=== PATIENT | female | born 1960 | race Caucasian/White ===

== ENCOUNTER 2019-04-20 17:47 | Inpatient (IN) | payer MEDICAID ==
[~2019-04-20] VITALS: Ht 165.1 cm; Wt 69.9 kg
[2019-04-20 17:49] VITALS: BP_SYST 129
--- NOTE | 2019-04-20 17:49 | NUR ---
Patient to ER bed 05 to gown for evaluation. Side rails up. Report given to SANDEEP Espana
--- NOTE | 2019-04-20 17:52 | NUR ---
Pt brought by self , A&Ox4, pt presents to ER with SOB, states Hx of COPD and smoker, skin pink and warm , cap efill <3, afebrile , follows commands, will cont to monitor
--- NOTE | 2019-04-20 17:55 | NUR ---
Kerrie Hernandez at bedside examining patient
[2019-04-20] MEDS ORDERED: methylPREDNISolone SOD SUCC/PF 62.5 MG/ML VIAL IM ONE (18:00)
[2019-04-20] MEDS ORDERED: IPRATROPIUM/ALBUTEROL SULFATE 3 ML AMPUL.NEB (DUONEB) INH ONE ×3 (18:00→19:30)
[2019-04-20] MEDS ORDERED: NACL 0.9% 1,000 ML IV ONE (18:00)
--- NOTE | 2019-04-20 18:09 | NUR ---
Report given to Jovi HOPKINS
[2019-04-20] MEDS ORDERED: methylPREDNISolone SOD SUCC/PF 62.5 MG/ML VIAL ONE (18:12)
[2019-04-20] MEDS ORDERED: MAGNESIUM SULFATE 1 GM/2 ML VIAL IVP ONE (18:15)
[2019-04-20 18:22] LABS: BASOPHILS # (AUTO) 0.1 K/uL (0.0-0.2); BASOPHILS % (AUTO) 0.6 % (0.0-2.0); EOSINOPHILS % (AUTO) 9.9 % (0.0-4.0); HEMATOCRIT 41.4 % (36-48); HEMOGLOBIN 14.4 g/dL (12.0-16.0); LYMPHOCYTES # (AUTO) 2.9 K/uL (1.0-5.5); LYMPHOCYTES % (AUTO) 28.9 % (20.5-51.5); MEAN CORPUSCULAR HEMOGLOBIN 34 pg (27-31); MEAN CORPUSCULAR HGB CONC 35 % (32-36); MEAN CORPUSCULAR VOLUME 97 fL (79.0-98.0); MONOCYTES # (AUTO) 1.1 K/uL (0.0-1.0); MONOCYTES % (AUTO) 11.1 % (1.7-9.3); NEUTROPHILS # (AUTO) 4.9 K/uL (1.8-7.7); NEUTROPHILS % (AUTO) 49.5 % (40.0-70.0); PLATELET COUNT (AUTO) 602 K/uL (130-430); RED BLOOD CELL COUNT(AUTO) 4.28 MIL/uL (4.2-6.2); RED CELL DISTRIBUTION WIDTH 13.4 % (9.0-15.0); WHITE BLOOD COUNT (AUTO) 9.9 K/uL (4.8-10.8)
[2019-04-20 18:55] LABS: CALCIUM 8.8 mg/dL (8.4-11.0); CREATININE 0.95 mg/dL (0.55-1.30); POTASSIUM 3.9 mmol/L (3.5-5.1)
[2019-04-20 19:08] LABS: ALBUMIN 4.4 g/dL (3.4-4.8); TOTAL BILIRUBIN 0.3 mg/dL (0.0-1.0)
[2019-04-20] MEDS ORDERED: OSELTAMIVIR PHOSPHATE 75 MG CAPSULE PO ONE (19:30)
[2019-04-20] MEDS ORDERED: ALBUTEROL SULFATE 0.083% 2.5 MG/3 ML VIAL.NEB INH ONE (19:30)
--- NOTE | 2019-04-20 19:52 | NUR ---
Report given to SANDEEP Donahue for continuation of care.
--- NOTE | 2019-04-20 20:30 | NUR ---
Dr. Yanez at bedside.
--- NOTE | 2019-04-20 21:00 | NUR ---
Pt on BiPAP, alert, responsive, even and non-labored respirations. Pt denies c/o C/P or discomfort and no needs verbalized at this time. VSS. Daughter presen to bedside.
--- NOTE | 2019-04-20 23:00 | NUR ---
Respirations even and non-labored with SPO2 at 98% on BiPAP. Pt denies c/o C/P or discomfort and no needs verbalized at this time. VSS. Daughter presen to bedside.
[2019-04-21] MEDS ORDERED: NITROGLYCERIN 0.4 MG TAB.SUBL SL PRN (00:15)
--- NOTE | 2019-04-21 00:30 | NUR ---
Pt resting quietly with eyes closed, even and non-labored respirations. VSS. Pts daughter at bedside and no needs verbalized at this time.
[2019-04-21 01:18] LABS: BILIRUBIN,URINE NEGATIVE (NEGATIVE); BLOOD, URINE NEGATIVE (NEGATIVE); CLARITY/URINE SLIGHTLY HAZY (CLEAR); COLOR,URINE YELLOW (YELLOW); GLUCOSE,URINE NEGATIVE (NEGATIVE); KETONES,URINE NEGATIVE (NEGATIVE); LEUKOCYTE ESTERASE ,URINE NEGATIVE (NEGATIVE); NITRITE, URINE NEGATIVE (NEGATIVE); PROTEIN URINE NEGATIVE (NEGATIVE); UROBILINOGEN,URINE 0.2 (0.2-1.0)
--- NOTE | 2019-04-21 01:30 | NUR ---
Per Dr. Yanez, BiPAP to be removed and pt to be placed on O2 at 2 LPM/NC. RT notified.
--- NOTE | 2019-04-21 01:40 | NUR ---
Pt able to tolerate O2 at 2 LPM/NC with SPO2 at 98%, even and non-labored respirations. Denies c/o C/P, VSS, no needs verbalized at this time.
--- NOTE | 2019-04-21 01:45 | NUR ---
Patient will be admitted to care of Dr. Crooks. Admitted to Tele unit. Will go to room 123A. Belongings list completed. Complete and up to date summary report printed. SBAR report given to SANDEEP Ackerman.
--- NOTE | 2019-04-21 01:45 | NUR ---
ADMISSION NOTE Received patient from ER via gurney. Patient admitted with diagnosis of COPD exacerbation. Patient is awake, alert, oriented X 4. Patient oriented to hospital room, call light, toileting, pain management and safety-teach back done. Patient informed that Yue will be her nurse and that their room number is 123A. Personal belongings checked and Belongings List documented. Call light within reach.
--- NOTE | 2019-04-21 01:50 | NUR ---
CONSULTATION PAGED REASON FOR CONSULTATION:HYPOXIA, COPD EXACERBATION WAS CONSULT CALLED?Y PERSON WHO WAS NOTIFIED:KARMEN CONSULTING PHYSICIAN:QUYEN CARLIN JEWEL GAUGER SPECIALTY:PULMONARY JEWEL GAUGER PHONE NUMBER:[phone] ORDERING PHYSICIAN:CANDIDA RAE
--- NOTE | 2019-04-21 01:52 | NUR ---
CONSULTATION PAGED REASON FOR CONSULTATION:CP, PRIOR H/O ?[place] WAS CONSULT CALLED?Y PERSON WHO WAS NOTIFIED:KARMEN CONSULTING PHYSICIAN:PITO YADAV QUAL FIELD MANAGER SPECIALTY:CARDIO QUAL FIELD MANAGER PHONE NUMBER:[phone] ORDERING PHYSICIAN:CANDIDA RAE
[2019-04-21 02:23] VITALS: BP_SYST 121
[2019-04-21 02:24] VITALS: BP_SYST 138
[2019-04-21] MEDS ORDERED: PANTOPRAZOLE SODIUM 40 MG TAB PO ONE (02:30)
[2019-04-21] MEDS: ASPIRIN 81 MG TABLET(ECOTRIN) PO SCH ×2 (02:59→10:31)
[2019-04-21 03:57] LABS: BASOPHILS % (AUTO) 0.1 % (0.0-2.0); HEMOGLOBIN 13.2 g/dL (12.0-16.0); LYMPHOCYTES # (AUTO) 0.5 K/uL (1.0-5.5); LYMPHOCYTES % (AUTO) 7.8 % (20.5-51.5); MEAN CORPUSCULAR HEMOGLOBIN 34 pg (27-31); MEAN CORPUSCULAR HGB CONC 35 % (32-36); MEAN CORPUSCULAR VOLUME 98 fL (79.0-98.0); MONOCYTES # (AUTO) 0.1 K/uL (0.0-1.0); MONOCYTES % (AUTO) 0.9 % (1.7-9.3); NEUTROPHILS # (AUTO) 5.6 K/uL (1.8-7.7); NEUTROPHILS % (AUTO) 91.2 % (40.0-70.0); PLATELET COUNT (AUTO) 520 K/uL (130-430); RED BLOOD CELL COUNT(AUTO) 3.88 MIL/uL (4.2-6.2); RED CELL DISTRIBUTION WIDTH 13.3 % (9.0-15.0); WHITE BLOOD COUNT (AUTO) 6.2 K/uL (4.8-10.8)
[2019-04-21 04:05] LABS: CALCIUM 8.7 mg/dL (8.4-11.0); CREATININE 0.91 mg/dL (0.55-1.30); POTASSIUM 4.9 mmol/L (3.5-5.1); TOTAL BILIRUBIN 0.2 mg/dL (0.0-1.0)
[2019-04-21] MEDS ORDERED: MONT10TA25 PO (04:38)
[2019-04-21] MEDS ORDERED: CARV3.1246 PO (04:38)
[2019-04-21] MEDS ORDERED: ATOR20TA64 PO (04:38)
[2019-04-21] MEDS ORDERED: ASPI-1153 PO (04:38)
[2019-04-21] MEDS ORDERED: MECL12.584 PO (04:38)
[2019-04-21] MEDS ORDERED: OMEP40CA33 PO (04:38)
[2019-04-21] MEDS ORDERED: ALBU2.5V7 INH (04:38)
--- NOTE | 2019-04-21 04:45 | NUR ---
Sleeping No signs of distress noted. Breathing even and unlabored on 3 L NC. No needs at this time. Call light with the patient. Safety precautions in place.
[2019-04-21] MEDS: methylPREDNISolone SOD SUCC/PF 62.5 MG/ML VIAL IVP SCH ×3 (05:39→21:22)
--- NOTE | 2019-04-21 06:45 | NUR ---
Closing notes Patient ambulated with minimal assist to bathroom to void. Steady gait noted. Patient back in bed. No signs of distress noted. Breathing even and unlabored. IV patent and intact. All needs met throughout the shift. Call light with the patient. Safety precautions in place. Will endorse care to day shift RN.
[2019-04-21] MEDS: IPRATROPIUM/ALBUTEROL SULFATE 3 ML AMPUL.NEB (DUONEB) INH SCH ×3 (06:55→20:04)
[2019-04-21 08:00] VITALS: BP_SYST 131
[2019-04-21] MEDS ORDERED: GLUCOSE 15 GM GEL (in 37.5 GM TUBE) PO PRN (08:00)
[2019-04-21] MEDS ORDERED: DEXTROSE 50%-WATER 50 ML DISP.SYRIN IVP PRN (08:00)
[2019-04-21] MEDS ORDERED: D5W 1,000 ML IV PRN (08:00)
--- NOTE | 2019-04-21 08:00 | NUR ---
ASSUMPTION OF CARE: RECEIVED PT A/A/OX4, DX: INADEQUATE VENTILATION, R/T COPD EXACERBATION, CHEST PAIN, VSS, BREATH SOUNDS ARE RHONCHI WITH PRODUCTIVE COUGH, SATURATING 94% WHILE ON 3L VIA NC, AFEBRILE, NO C/O C/P, NO S/S OF DISTRESS, ORIENTED TO UNIT, CALL LIGHT PLACED WITHIN REACH, WILL CONT' TO MONITOR AND ASSESS.
--- NOTE | 2019-04-21 09:00 | NUR ---
STEWARDESSES TEACHER: MORNING MEDS GIVEN, PER ORDERED BY Deric, TOLERATED WELL, WILL CONT' TO MONITOR AND ASSESS.
[2019-04-21] MEDS: cefTRIAXone 1 GM IVPB PREMIX 50 ML IV SCH (10:30)
--- NOTE | 2019-04-21 11:30 | NUR ---
VISIT: AT BEDSIDE FOR ASSESSMENT OF PT, NEW ORDERS GIVEN, DISCUSSED POC, VERBALIZES UNDERSTANDING, WILL CONT' TO MONITOR AND ASSESS.
[2019-04-21 12:00] VITALS: BP_SYST 140
[2019-04-21] MEDS ORDERED: OSELTAMIVIR PHOSPHATE 75 MG CAPSULE PO ONE (12:00)
[2019-04-21] MEDS ORDERED: AZITHROMYCIN 250 MG TABLET PO ONE (12:00)
--- NOTE | 2019-04-21 12:00 | NUR ---
GLUCOSE MONITORING: BLOOD SUGAR [id number], 2 UNITS HUMALOG GIVEN SQ, TOLERATED WELL, WILL CONT' WITH POC.
[2019-04-21] MEDS: INSULIN LISPRO SLIDING SCALE 100 UNITS/ML VIAL (humaLOG) SUBCUT PRN ×3 (12:12→21:21)
--- NOTE | 2019-04-21 14:00 | NUR ---
VISIT: AT BEDSIDE FOR ASSESSMENT OF PT, NEW ORDERS GIVEN, WILL CONT' WITH POC.
[2019-04-21] MEDS: ACETAMINOPHEN 325 MG TABLET PO PRN (14:36)
--- NOTE | 2019-04-21 14:54 | NUR ---
SS NOTES: PRINT MANAGER was referred by CM to see pt for DCP. Demographic information confirmed and updated (Next of Kin: Emilee Garrido, dtr, @ [phone] and PCP: No PCP) Pt is a 59 y/o who came in via ED when she had difficulty breathing last night. Pt states she was "breathing bad since [place]" and worsen last night prompting her to call 911. Pt states she lives with her 89 y/o mother in a one nathaniel home with no steps to get to the front door. Pt is independent with ADL's and does not use any DME prior to admission. Pt states her only source of income is SSI of $941/month. Pt states she has a history of depression and is connected with [facility]. Pt denies being depressed now and denies substance abuse/use. Pt states if discharged to SNF or [facility], she will not have any preference. PRINT MANAGER encouraged pt to call community clinics to make appointment for f/u care since pt does not have a PCP. PRINT MANAGER provided pt with [facility] and [facility] list. No further SS needs identified but will remain available.
[2019-04-21 16:00] VITALS: BP_SYST 144
--- NOTE | 2019-04-21 17:00 | NUR ---
GLUCOSE MONITORING: BLOOD SUGAR [id number], 2 UNITS HUMALOG GIVEN SQ, TOLERATED WELL, WILL CONT' WITH POC.
--- NOTE | 2019-04-21 18:00 | NUR ---
END OF SHIFT: PT ASLEEP, EASILY AROUSED VIA VERBAL STIMULI, NO C/O PAIN OR DISCOMFORT, NEEDS MET, CALL LIGHT WITHIN REACH, WILL CONT' TO MONITOR AND ASSESS.
--- NOTE | 2019-04-21 19:30 | NUR ---
CHANGE OF SHIFT; pt. sleeping when received, no acute distress. observed on droplet isolation for influenza. wii reassess alter. call light at bedside.
--- NOTE | 2019-04-21 20:30 | NUR ---
NOTES: pt. awakened. no shortness of breath, on room air. VS checked. potline monitor shows sinus rhythm. call light at bedside.
[2019-04-21] MEDS: OSELTAMIVIR PHOSPHATE 75 MG CAPSULE PO SCH (21:16)
--- NOTE | 2019-04-21 21:30 | NUR ---
NOTES: pt. BS checked with sliding scale coverage and po medication given. pt. very sleepy.
--- NOTE | 2019-04-21 23:30 | NUR ---
NOTES: pt. up and ambulated to restroom, voided. pt. needs attended.
[2019-04-22] MEDS: IPRATROPIUM/ALBUTEROL SULFATE 3 ML AMPUL.NEB (DUONEB) INH SCH ×4 (01:00→19:48)
--- NOTE | 2019-04-22 01:45 | NUR ---
NOTES: IV came out accidentally, restarted by charge nurse Janeth. pt. also asked fro snacks, sandwich and juice given.
[2019-04-22 01:49] VITALS: BP_SYST 119
[2019-04-22] MEDS: guaiFENesin 200 MG/CODEINE 20 MG/ 10 ML UDC PO PRN ×3 (03:24→15:25)
--- NOTE | 2019-04-22 03:43 | NUR ---
NOTES: pt. given cough syrup, still coughing and claims to hurt. gets urine incontinence when she coughs, leticia pad given. pt. needs attended.
--- NOTE | 2019-04-22 05:30 | NUR ---
NOTES: pt. sleeping, no distress. cardia pattern unchanged.
[2019-04-22] MEDS: methylPREDNISolone SOD SUCC/PF 62.5 MG/ML VIAL IVP SCH ×3 (06:14→22:22)
[2019-04-22 06:27] LABS: CALCIUM 8.8 mg/dL (8.4-11.0); CREATININE 0.76 mg/dL (0.55-1.30); POTASSIUM 4.5 mmol/L (3.5-5.1); TOTAL BILIRUBIN 0.3 mg/dL (0.0-1.0)
[2019-04-22 06:32] LABS: HEMATOCRIT 37.6 % (36-48); HEMOGLOBIN 12.7 g/dL (12.0-16.0); LYMPHOCYTES # (AUTO) 0.8 K/uL (1.0-5.5); MEAN CORPUSCULAR HEMOGLOBIN 33 pg (27-31); MEAN CORPUSCULAR HGB CONC 34 % (32-36); MEAN CORPUSCULAR VOLUME 98 fL (79.0-98.0); MONOCYTES # (AUTO) 0.7 K/uL (0.0-1.0); MONOCYTES % (AUTO) 3.5 % (1.7-9.3); NEUTROPHILS # (AUTO) 17.8 K/uL (1.8-7.7); PLATELET COUNT (AUTO) 542 K/uL (130-430); RED BLOOD CELL COUNT(AUTO) 3.84 MIL/uL (4.2-6.2); RED CELL DISTRIBUTION WIDTH 13.6 % (9.0-15.0); WHITE BLOOD COUNT (AUTO) 19.3 K/uL (4.8-10.8)
--- NOTE | 2019-04-22 06:35 | NUR ---
CLOSING NOTES; pt. awakened for BS checked 120, no sliding scale coverage needed. IV site patent, flushing well, due IV medication given. use O2 on and , O2 @ 2l/nc right now. for further care and assistance. call light at bedside.
[2019-04-22 08:18] VITALS: BP_SYST 155
--- NOTE | 2019-04-22 08:21 | NUR ---
Called RT patient complaining of shortness of breath and wheezing, asking for breathing treatment. Assessed lungs, patient does have wheezing and shortness of breath, she has difficulty with completing sentences. Addendum: 04/22/19 at 0825 by Linwood Trinidad RN patient receiving breathing treatment at this time, tolerating well, continuing to monitor.
--- NOTE | 2019-04-22 08:21 | NUR ---
Opening note patient resting in bed, a/ox4, denies pain, patient has shortness of breath and wheezing, unable to catch her breath at this time, will call RT for breathing treatment, patient is on 2L via nasal cannula, O2 saturation is 92%, continuing to monitor the patient, bed in lowest position, two side rails up, call light within reach, fall and aspiration precautions in place.
[2019-04-22] MEDS: cefTRIAXone 1 GM IVPB PREMIX 50 ML IV SCH (08:41)
[2019-04-22] MEDS: ASPIRIN 81 MG TABLET(ECOTRIN) PO SCH (08:42)
[2019-04-22] MEDS: AZITHROMYCIN 250 MG TABLET PO SCH (08:42)
[2019-04-22] MEDS: ATORVASTATIN 20 MG TABLET PO SCH (08:42)
[2019-04-22] MEDS: OSELTAMIVIR PHOSPHATE 75 MG CAPSULE PO SCH ×2 (08:42→20:33)
[2019-04-22] MEDS: CARVEDILOL 3.125 MG TABLET (COREG) PO SCH (08:42)
[2019-04-22] MEDS: ACETAMINOPHEN 325 MG TABLET PO PRN (08:45)
--- NOTE | 2019-04-22 08:50 | NUR ---
Medication patient resting in bed, awake, states pain to right lower quadrant of abdomen, educated patient on scheduled and PRN medication uses and potential side effects, she verbalized understanding and tolerated well, IV line is patent and infusing well, will paged MD regarding the abdominal pain, continuing to monitor the patient, bed in lowest position, two side rails up, call light within reach, fall, aspiration and isolation precautions in place.
--- NOTE | 2019-04-22 08:52 | NUR ---
Dr. Samia rodriguez informed him of patient complaining of pain to abdomen, MD assessed the patient, will follow up with any new orders.
--- NOTE | 2019-04-22 09:34 | NUR ---
Cough medication patient resting in bed, her family is at bedside, patient states her pain has improved, educated the patient on cough medication, uses and potential side effects, she verbalized understanding and tolerated well, no other needs at this time, continuing to monitor, bed in lowest position, two side rails up, call light within reach, fall, aspiration and isolation precautions in place.
[2019-04-22] MEDS: INSULIN LISPRO SLIDING SCALE 100 UNITS/ML VIAL (humaLOG) SUBCUT PRN ×2 (10:59→16:57)
[2019-04-22 11:49] LABS: NEUTROPHILS % (AUTO) 92.5 % (40.0-70.0)
--- NOTE | 2019-04-22 12:38 | NUR ---
RN rounds patient resting in bed, eating lunch, aspiration precautions in place, patient denies pain, denies shortness of breath, continuing to monitor, bed in lowest position, two side rails up, call light within reach, fall, aspiration and isolation precautions in place, her family is at bedside.
[2019-04-22 14:06] VITALS: BP_SYST 122
--- NOTE | 2019-04-22 14:06 | NUR ---
Medication/Rounds patient resting in bed, awake, educated patient on scheduled medication uses and potential side effects, she verbalized understanding and tolerated well, IV line is patent and infusing well, continuing to monitor the patient, bed in lowest position, two side rails up, call light within reach, fall, aspiration and isolation precautions in place.
--- NOTE | 2019-04-22 15:26 | NUR ---
Medication patient resting in bed, she denies pain, complaining of cough, educated on PRN medication uses and potential side effects, she verbalized understanding and tolerated, patient has no other needs at this time, continuing to monitor, bed in lowest position, two side rails up, call light within reach, fall, aspiration and isolation precautions in place, her family is at bedside.
--- NOTE | 2019-04-22 17:00 | NUR ---
RN rounds patient resting in bed, awake, denies pain, educated on new medication, uses and potential side effects, she verbalized understanding and tolerated well, blood glucose checked and insulin coverage provided per MD orders, provided patient with ice water, no other needs at this time, bed in lowest position, two side rails up, call light within reach, fall, aspiration and isolation precautions in place.
[2019-04-22] MEDS: MONTELUKAST 10 MG TABLET PO SCH (17:02)
--- NOTE | 2019-04-22 17:20 | NUR ---
Nutrition Assessment (short note d/t high patient load) A - RD reviewed pertinent nutrition-related info via EMR (physician notes/nursing notes/labs/meds/nursing care trends/care activity). Admission Dx: COPD exacerbation Pt also found w/ influenza A per physician notes PMH: asthma, COPD, HLD, HTN per physician notes Current Diet Order/Nutrition Support: RD Notification received for unintentional wt loss in the last 3 months (2-3#) and pt eating poorly greater than 1 week because of decreased appetite. Per EMR records, pt appears to be eating and tolerating diet well -- PO intake average 100% x4 meals; abd is soft and non-distended w/ active bowel sounds; no skin breakdown noted. Pt is meeting optimal nutritional needs, and current diet remains appropriate. Ht: 65"/5'5" Wt: 154#/70 kg IBW: 125#/57 kg %IBW: 123% UBW: Unknown %UBW: Unknown BMI: 25.6 kg/m2 (overweight) Subjective Info: ESTIMATED NUTRITIONAL NEEDS CALORIES/DAY: 3756-5991 kcal/day (30-35 kcal/kg CBW for acute state) PROTEIN/DAY: 84-105 gm/day (1.2-1.5 gm/kg CBW for acute state) FLUID/DAY: 2.1-2.5 L/day (1 ml/kcal/day for maintenance) D - No current nutrition problems I - Recommend continuing cardiac diet M - Monitor appetite and PO intakes w/ goal of pt meeting at least 75% of estimated nutritional needs, labs trending WNL, normal GI function, and skin integrity/wt maintenance E - Low risk; F/U within 7 days
--- NOTE | 2019-04-22 17:25 | NUR ---
Dietitian Recommendations * Recommend continuing cardiac diet LP, RD Please refer to Nutrition Assessment for details.
--- NOTE | 2019-04-22 18:17 | NUR ---
Closing note patient resting in bed, awake, denies pain, all needs met, will endorse report to NOC shift nurse, bed in lowest position, two side rails up, call light within reach, fall and aspiration precautions in place.
--- NOTE | 2019-04-22 19:10 | NUR ---
CHANGE OF SHIFT: pt. awake, alert with visitor at bedside. pt. wants medication for her GERD, apparently taking Protonix daily but it was jot ordered, told her will call MD to reorder. call light within reach.
--- NOTE | 2019-04-22 19:14 | NUR ---
PAGED PAGED DOCTOR QUINTERO FOR ORDERS
[2019-04-22 20:30] VITALS: BP_SYST 169
[2019-04-22] MEDS ORDERED: PANTOPRAZOLE SODIUM 40 MG TAB PO ONE (20:30)
--- NOTE | 2019-04-22 20:30 | NUR ---
NOTES: Dr. Crooks return the call and informed her about her stomach upset, ordered Protonix po x1. VS checked.
--- NOTE | 2019-04-22 21:00 | NUR ---
NOTES: due meds given/ IV lock on rt. hand. BS checked 118, no coverage. not using O2 at this time, still with occ. bout of cough. instructed to call for help. observed on droplet isolation.
--- NOTE | 2019-04-22 22:00 | NUR ---
NOTES: pt. sleeping, awakened for due IV medication, IV site bent needle, flushed and able to save it, new transparent dressing applied.
[2019-04-22 22:30] VITALS: BP_SYST 125
--- NOTE | 2019-04-23 00:30 | NUR ---
NOTES: pt. remain sleeping, no complaints noted.
--- NOTE | 2019-04-23 03:22 | NUR ---
NOTES: pt. remain sleeping. repositioned self for comfort. call light within reach.
--- NOTE | 2019-04-23 05:00 | NUR ---
NOTES: pt. sleeping, IV accidentally came out. pt. needs attended.
[2019-04-23] MEDS: methylPREDNISolone SOD SUCC/PF 62.5 MG/ML VIAL IVP SCH ×2 (06:29→12:10)
--- NOTE | 2019-04-23 06:30 | NUR ---
CLOSING NOTES; pt. awake, IV came out again. IV restarted. ambulates to the restroom. still coughs on and off. uses O2 on and off.
--- NOTE | 2019-04-23 08:00 | NUR ---
RECEIVED AWAKE ALERT ORIENTED NO PAIN
[2019-04-23] MEDS: cefTRIAXone 1 GM IVPB PREMIX 50 ML IV SCH (09:15)
[2019-04-23] MEDS: ASPIRIN 81 MG TABLET(ECOTRIN) PO SCH (09:16)
[2019-04-23] MEDS: ATORVASTATIN 20 MG TABLET PO SCH (09:16)
[2019-04-23] MEDS: CARVEDILOL 3.125 MG TABLET (COREG) PO SCH (09:17)
[2019-04-23] MEDS: AZITHROMYCIN 250 MG TABLET PO SCH (09:17)
--- NOTE | 2019-04-23 10:00 | NUR ---
UP AND ABOUT TO BATHROOM GOOD APPETITE FOR BREAKFAST
[2019-04-23 10:23] VITALS: BP_SYST 135
[2019-04-23] MEDS: IPRATROPIUM/ALBUTEROL SULFATE 3 ML AMPUL.NEB (DUONEB) INH SCH ×2 (10:43→14:11)
[2019-04-23 11:33] VITALS: BP_SYST 123
[2019-04-23] MEDS: OSELTAMIVIR PHOSPHATE 75 MG CAPSULE PO SCH (11:55)
[2019-04-23] MEDS: INSULIN LISPRO SLIDING SCALE 100 UNITS/ML VIAL (humaLOG) SUBCUT PRN ×2 (12:06→18:04)
--- NOTE | 2019-04-23 14:00 | NUR ---
RESTING QUIETLY IN BED ENTERTAINED VISITORS
[2019-04-23 15:56] VITALS: BP_SYST 134
--- NOTE | 2019-04-23 16:00 | NUR ---
REMAINS RESTING IN BED
[2019-04-23] MEDS: MONTELUKAST 10 MG TABLET PO SCH (17:43)
[2019-04-23 18:29] VITALS: BP_SYST 135
[2019-04-23 18:39] VITALS: BP_SYST 135
--- NOTE | 2019-04-23 19:10 | NUR ---
DISCHARGE HOME WITH SISTER VIA WHELLCHAIR IN STABLE CONDITION WITH INSTRUCTIONS
--- NOTE | 2019-04-30 10:49 | NUR ---
Discharge Follow Up Phone Call PARAPROFESSIONAL EDUCATION ASSISTANT phoned patient, . Patient stated she was doing okay and went to the [facility] 04/28/19 for her follow up appointment. She will stay with the [facility] for follow up until she is assigned a PCP. She filled her prescriptions. Patient mentioned her heart rate was high at the clinic. She thinks it is stress. Discussed deep breathing technique and recommended a caregiving support group [facility]. No other questions or concerns.
== END 2019-04-23 19:10 | disposition home or self-care (01) | DRG 140 ==
LOC: SED 17:47 → STU 23:26
PROVIDERS: ADMIT Internal Medicine; ATTEND Internal Medicine
DX: J44.1 Chronic obstructive pulmonary disease with (acute) exacerbation (principal); I51.81 Takotsubo syndrome; R65.10 Systemic inflammatory response syndrome (SIRS) of non-infectious origin without acute organ dysfunction; J44.0 Chronic obstructive pulmonary disease with (acute) lower respiratory infection; J20.9 Acute bronchitis, unspecified; J10.1 Influenza due to other identified influenza virus with other respiratory manifestations; E78.5 Hyperlipidemia, unspecified; F17.210 Nicotine dependence, cigarettes, uncomplicated; I10 Essential (primary) hypertension; I25.10 Atherosclerotic heart disease of native coronary artery without angina pectoris; Z82.49 Family history of ischemic heart disease and other diseases of the circulatory system; I25.2 Old myocardial infarction; Z79.899 Other long term (current) drug therapy
CPT/HCPCS: 36415; 36600; 71045; 80053; 81003; 82803-TC; 82962; 83605; 83880; 84484; 85025; 85379; 86710; 87040-TC; 87086; 93005; 93306; 93970; 94640; 96365; 96366; 96375; 99285; G0378; G9035; J0696; J1956; J2930; J3475; J7613; J7620; Q0144

== ENCOUNTER 2020-12-12 17:06 | Inpatient (IN) | payer MEDICAID, SELFPAY ==
[~2020-12-12] VITALS: Ht 165.1 cm; Wt 69.7 kg
[~2020-12-12 17:06] MED LIST: ALBU2.5V7 INH; ASPI-1393 PO; ATOR20TA64 PO; CARV3.1246 PO; MONT10TA33 PO; OMEP40CA20 PO
[2020-12-12 17:15] VITALS: BP_SYST 134
--- NOTE | 2020-12-12 17:32 | NUR ---
Placed in room [address] recording monitor, blood pressure machine and pulse oximeter. To gown for exam. Side rails up.
--- NOTE | 2020-12-12 17:35 | NUR ---
Pt bib ambulance from home with c/o SOB, h/o COPD and Asthma, on home O2. Sats upon arrival 99% on 2L NC. V/S stable, no acute distress noted.
--- NOTE | 2020-12-12 17:50 | NUR ---
ER Dr. Yanez at bedside examining patient.
--- NOTE | 2020-12-12 17:58 | NUR ---
Lab at bedside for blood draw.
--- NOTE | 2020-12-12 18:01 | NUR ---
Respiratory at bedside for breathing treatment.
[2020-12-12 18:27] LABS: PLATELET COUNT (AUTO) 158 K/uL (130-430)
[2020-12-12 18:37] LABS: HEMATOCRIT 37.6 % (36-48); MEAN CORPUSCULAR HEMOGLOBIN 33 pg (27-31); MEAN CORPUSCULAR HGB CONC 35 % (32-36); MEAN CORPUSCULAR VOLUME 97 fL (79.0-98.0); RED BLOOD CELL COUNT(AUTO) 3.89 MIL/uL (4.2-6.2); RED CELL DISTRIBUTION WIDTH 12.3 % (9.0-15.0); WHITE BLOOD COUNT (AUTO) 3.8 K/uL (4.8-10.8)
[2020-12-12] MEDS ORDERED: AZITHROMYCIN 250 MG TABLET PO ONE (19:00)
[2020-12-12] MEDS ORDERED: cefTRIAXone 1 GM IVPB PREMIX 50 ML IV ONE (19:00)
[2020-12-12 19:02] LABS: CALCIUM 8.1 mg/dL (8.4-11.0); CREATININE 0.87 mg/dL (0.55-1.30); POTASSIUM 3.6 mmol/L (3.5-5.1); TOTAL BILIRUBIN 0.4 mg/dL (0.0-1.0)
--- NOTE | 2020-12-12 19:13 | NUR ---
Care of patient endorsed to SANDEEP River. Pt currently resting in bed, no acute distress noted.
[2020-12-12 19:16] LABS: PROTHROMBIN TIME 10.1 SECS (9.5-12.5)
[2020-12-12] MEDS ORDERED: DEXAMETHASONE SOD PHOSPHATE 10 MG/ML VIAL IVP ONE (19:30)
[2020-12-12 19:36] LABS: C-REACTIVE PROTEIN QUANT 6.2 mg/dL (0-0.5)
--- NOTE | 2020-12-12 19:40 | NUR ---
PATIENT RESTING AT THIS TIME. VSS. NO VISIABLE DISTRESS AT THIS TIME. MEDICATION ADMINISTERED ORDERED.
--- NOTE | 2020-12-12 20:08 | NUR ---
Patient will be admitted to care of DR. WELSH as a case of COVID INFECTION. Admitted to Telemetry unit. Will go to room pending. Belongings list completed. Complete and up to date summary report printed. SBAR report to be given at bedside with opportunity for questions.
--- NOTE | 2020-12-12 20:08 | NUR ---
Patient will be admitted to care of [facility]. Admitted to TELE unit. PENDING ROOM ASSIGNMENTS. Belongings list completed. Complete and up to date summary report printed. SBAR report to be given at bedside with opportunity for questions.
--- NOTE | 2020-12-12 20:08 | NUR ---
Medication reconciliation completed with information provided by PATIENT. Any prior medication reconciliation on file was reviewed and corrected.
[2020-12-12 20:39] LABS: BAND % (MANUAL) 5 % (0-6); BASOPHILS % (MANUAL) 0 % (0-2); EOSINOPHILS % (MANUAL) 0 % (0-7); LYMPHOCYTES % (MANUAL) 18 % (20-46); MONOCYTES % (MANUAL) 20 % (0-11)
[2020-12-12] MEDS ORDERED: ZOLPIDEM TARTRATE 5 MG TABLET PO PRN (20:45)
[2020-12-12] MEDS ORDERED: IPRATROPIUM/ALBUTEROL SULFATE 3 ML AMPUL.NEB (DUONEB) INH PRN (20:45)
[2020-12-12] MEDS ORDERED: DOCUSATE SODIUM 100 MG CAPSULE PO PRN (20:45)
[2020-12-12] MEDS ORDERED: ACETAMINOPHEN 325 MG TABLET PO PRN (20:45)
[2020-12-12] MEDS ORDERED: MAGNESIUM SULFATE 50 ML IV PRN (20:45)
[2020-12-12] MEDS ORDERED: POTASSIUM CHLORIDE 20 MEQ TAB.PRT.SR PO PRN (20:45)
[2020-12-12] MEDS ORDERED: MUPIROCIN 2% TOPICAL OINTMENT 22 GM NS PRN (20:45)
[2020-12-12] MEDS ORDERED: LORazepam 2 MG/ML VIAL IVP PRN (20:45)
[2020-12-12] MEDS ORDERED: ONDANSETRON HCL 4 MG/2 ML VIAL IVP PRN (20:45)
[2020-12-12 20:49] VITALS: BP_SYST 134
[2020-12-12] MEDS: NACL 0.9% 1,000 ML IV SCH (21:03)
[2020-12-12] MEDS: DECADRON 4 MG TABLET PO SCH (21:03)
--- NOTE | 2020-12-12 21:56 | NUR ---
Patient's code status is [] paperwork completed and placed in chart.
--- NOTE | 2020-12-12 22:00 | NUR ---
Transfer to TELE via ACLS protocol. Licensed nurse present. IV present no signs or symptoms of infiltration.
--- NOTE | 2020-12-12 22:07 | NUR ---
Admission Note Received patient from ER with diagnosis of covid. Initial Plan of Care discussed-patient verbalized understanding. Oriented to room, call light, pain management and safety.
--- NOTE | 2020-12-13 00:37 | NUR ---
CONSULTATION PAGED/CALLED Reason for Consultation: COVID INFECTION Person Who was Notified: KARMEN Consulting Physician: MELLISSA Supervisor Network Control Operators Specialty: Ordering Physician: ANITHA
[2020-12-13 01:40] VITALS: BP_SYST 116
--- NOTE | 2020-12-13 06:57 | NUR ---
CLOSING NOTES: Patient in bed, eyes closed, breathing evenly and nonlabored on 2L of O2 via NC, HOB elevated, no s/s of infection or infiltration. Patient has an IV, patent, benign, and flushing. No s/s of infection or infiltration. Fall/safety/isolation precaution. All needs met at this time. Will continue to monitor and endorse care to morning shift nurse.
[2020-12-13 07:22] LABS: HEMATOCRIT 40.3 % (36-48); HEMOGLOBIN 13.7 g/dL (12.0-16.0); MEAN CORPUSCULAR HEMOGLOBIN 33 pg (27-31); MEAN CORPUSCULAR HGB CONC 34 % (32-36); MEAN CORPUSCULAR VOLUME 97 fL (79.0-98.0); PLATELET COUNT (AUTO) 168 K/uL (130-430); RED BLOOD CELL COUNT(AUTO) 4.15 MIL/uL (4.2-6.2); RED CELL DISTRIBUTION WIDTH 12.6 % (9.0-15.0)
[2020-12-13 08:00] VITALS: BP_SYST 113
--- NOTE | 2020-12-13 08:00 | NUR ---
Initial Note Patient awake and alert x 4, sitting up in bed. No distress or pain noted. Oxygen is flowing at 2 L via N/C, patient saturating 97%. Patient is ambulatory without assist. Will continue to monitor. Bed in lowest position and call light in reach, encouraged to call.
[2020-12-13 08:27] LABS: WHITE BLOOD COUNT (AUTO) 1.6 K/uL (4.8-10.8)
--- NOTE | 2020-12-13 08:30 | NUR ---
Notes Received lab value notification of WBC 1.[address] Duncan Stringer was notified during rounds.
[2020-12-13 08:50] LABS: ERYTHROCYTE SEDIMENTATION RATE 12 MM/HR (0-20)
[2020-12-13] MEDS: MONTELUKAST 10 MG TABLET PO SCH (08:50)
[2020-12-13] MEDS: AZITHROMYCIN 250 MG TABLET PO SCH (08:50)
[2020-12-13] MEDS: PANTOPRAZOLE SODIUM 40 MG TAB PO SCH (08:50)
[2020-12-13] MEDS: ASCORBIC ACID 500 MG TABLET PO SCH (08:51)
[2020-12-13] MEDS: CHOLECALCIFEROL (VITAMIN D3) 2,000 UNIT TABLET PO SCH (08:51)
--- NOTE | 2020-12-13 08:57 | NUR ---
Nutrition Update Luis Armando Scale 18 noted. Pt admitted for COVID Infection Diet: Regular BMI: 25.6 kg/m2 RD to follow per nutrition care standards.
[2020-12-13] MEDS ORDERED: OMEPRAZOLE Non-Formulary 20 MG CAPSULE.DR PO SCH (09:00)
[2020-12-13 09:04] LABS: ATYPICAL LYMPHOCYTES % 0 % (0-0); BAND % (MANUAL) 0 % (0-6); BASOPHILS % (MANUAL) 0 % (0-2); EOSINOPHILS % (MANUAL) 0 % (0-7); LYMPHOCYTES % (MANUAL) 30 % (20-46); MONOCYTES % (MANUAL) 10 % (0-11)
[2020-12-13] MEDS: ENOXAPARIN SODIUM 40 MG/0.4 ML SYRINGE SUBCUT SCH (09:11)
[2020-12-13 10:37] LABS: CALCIUM 8.6 mg/dL (8.4-11.0); CREATININE 0.91 mg/dL (0.55-1.30)
[2020-12-13] MEDS: NACL 0.9% 1,000 ML IV SCH (11:03)
[2020-12-13 12:00] VITALS: BP_SYST 115
[2020-12-13 14:38] LABS: C-REACTIVE PROTEIN QUANT 7.2 mg/dL (0-0.5)
[2020-12-13 16:00] VITALS: BP_SYST 117
[2020-12-13] MEDS ORDERED: IVERMECTIN 3 MG TABLET PO ONE (18:30)
--- NOTE | 2020-12-13 19:03 | NUR ---
Closing Note Patient lying in bed, no pain or distress reported. Receiving NS at 70 mLs. Site patent, no redness or swelling. Encouraged to use call light. Uses oxygen at 2 L as needed. Bed in lowest position. Will endorse to night nurse.
[2020-12-13 20:00] VITALS: BP_SYST 126
--- NOTE | 2020-12-13 20:21 | NUR ---
Opening notes Pt AAOx4, VSS, afebrile. No s/s distress noted. O2 sat 95-96% on room air. IVF infusing at ordered rate R. FA no s/s infiltration. CAll ligh within reach. Droplet/Covid isolation maintained. To monitor.
[2020-12-13] MEDS: DECADRON 4 MG TABLET PO SCH (20:22)
[2020-12-14] VITALS: BP_SYST 123
[2020-12-14] MEDS: NACL 0.9% 1,000 ML IV SCH ×2 (01:13→06:28)
[2020-12-14 06:42] LABS: HEMATOCRIT 37.6 % (36-48); HEMOGLOBIN 12.8 g/dL (12.0-16.0); LYMPHOCYTES # (AUTO) 0.5 K/uL (1.0-5.5); LYMPHOCYTES % (AUTO) 8.9 % (20.5-51.5); MEAN CORPUSCULAR HEMOGLOBIN 33 pg (27-31); MEAN CORPUSCULAR HGB CONC 34 % (32-36); MEAN CORPUSCULAR VOLUME 97 fL (79.0-98.0); MONOCYTES # (AUTO) 0.5 K/uL (0.0-1.0); MONOCYTES % (AUTO) 8.3 % (1.7-9.3); NEUTROPHILS # (AUTO) 4.8 K/uL (1.8-7.7); NEUTROPHILS % (AUTO) 82.8 % (40.0-70.0); PLATELET COUNT (AUTO) 205 K/uL (130-430); RED BLOOD CELL COUNT(AUTO) 3.87 MIL/uL (4.2-6.2); RED CELL DISTRIBUTION WIDTH 12.6 % (9.0-15.0); WHITE BLOOD COUNT (AUTO) 5.8 K/uL (4.8-10.8)
[2020-12-14 07:19] LABS: C-REACTIVE PROTEIN QUANT 3.5 mg/dL (0-0.5); CALCIUM 8.4 mg/dL (8.4-11.0); CREATININE 0.68 mg/dL (0.55-1.30); POTASSIUM 4.3 mmol/L (3.5-5.1)
[2020-12-14 08:00] VITALS: BP_SYST 127
--- NOTE | 2020-12-14 08:00 | NUR ---
OPENING NOTE RECEIVED REPORT FROM FLAKE CUTTER OPERATOR NURSE. PATIENT FOUND ASLEEP IN BED.PATIENT HAS NO COMPLAINTS OF PAIN OR DISCOMFORT AT THIS TIME. ASPIRATION, FALL , AND SAFETY PRECAUTIONS IN PLACE. BED IN LOWEST POSITION AND LOCKED, RAILS UP AND CALL LIGHT IN REACH. WILL CONTINUE TO MONITOR.
--- NOTE | 2020-12-14 09:00 | NUR ---
NURSING NOTE DR WELSH TO SEE PATIENT, PER DOCTOR ANITHA IF DR. MALLOY AND DR. HERNANDES GIVE THE OK TO DC, HE WILL DC HER TODAY.
[2020-12-14] MEDS: CHOLECALCIFEROL (VITAMIN D3) 2,000 UNIT TABLET PO SCH (09:15)
[2020-12-14] MEDS: MONTELUKAST 10 MG TABLET PO SCH (09:16)
[2020-12-14] MEDS: PANTOPRAZOLE SODIUM 40 MG TAB PO SCH (09:16)
[2020-12-14] MEDS: ASCORBIC ACID 500 MG TABLET PO SCH (09:16)
[2020-12-14] MEDS: AZITHROMYCIN 250 MG TABLET PO SCH (09:16)
[2020-12-14] MEDS: ENOXAPARIN SODIUM 40 MG/0.4 ML SYRINGE SUBCUT SCH (09:23)
--- NOTE | 2020-12-14 11:48 | NUR ---
PULMONARY DOCOTR PAGED PAGED AT SPOKE WITH BEA.
[2020-12-14 11:58] LABS: ERYTHROCYTE SEDIMENTATION RATE 10 MM/HR (0-20)
[2020-12-14 12:00] VITALS: BP_SYST 135
--- NOTE | 2020-12-14 12:55 | NUR ---
INFECTIOUS DISEASE DOCTOR CALLED PAGED CANDICE GOODMAN AT [phone] SPOKE WITH LUCIE.
[2020-12-14] MEDS ORDERED: DEXA6TAB5 PO (15:00)
[2020-12-14] MEDS ORDERED: APIX2.5T PO (15:00)
[2020-12-14 15:46] VITALS: BP_SYST 135
--- NOTE | 2020-12-14 15:50 | NUR ---
Nutrition Note Pt is due to be seen for Nutrition Assessment today, however, when RD called pt's room at [phone] for phone interview, pt reported that she is leaving today. RD offered nutrition education for general healthy therapeutic diet, but pt declined. Pt reported that she anticipates D/C before dinner. Nutrition Assessment deferred.
[2020-12-14 16:28] VITALS: BP_SYST 131
--- NOTE | 2020-12-14 16:29 | NUR ---
Discharge note Patient is awake and alert , with no complaints of pain , discomfort or SOB at this time. Doctor Clarisa Song and donnie ok to discharge. Patient to follow up with primary doctor in [address] dyer in 4 weeks. Patient educated on DX,DC instructions and medications.
== END 2020-12-14 16:45 | disposition home or self-care (01) | DRG 720 ==
LOC: SED 17:06 → STU 20:07
PROVIDERS: ADMIT General Practice; ATTEND General Practice
DX: A41.9 Sepsis, unspecified organism (principal); J96.01 Acute respiratory failure with hypoxia; J12.82 Pneumonia due to coronavirus disease 2019; U07.1 COVID-19; J44.0 Chronic obstructive pulmonary disease with (acute) lower respiratory infection; R65.20 Severe sepsis without septic shock; E66.9 Obesity, unspecified; F17.200 Nicotine dependence, unspecified, uncomplicated; J15.9 Unspecified bacterial pneumonia; K35.80 Unspecified acute appendicitis; K46.9 Unspecified abdominal hernia without obstruction or gangrene; Z68.25 Body mass index [BMI] 25.0-25.9, adult; Z90.710 Acquired absence of both cervix and uterus; Z99.81 Dependence on supplemental oxygen
CPT/HCPCS: 36415; 36600; 71045; 80048; 80053; 82550; 82728; 82803-TC; 83036; 83615; 83735; 83880; 84484; 85007; 85025; 85027; 85379; 85384; 85610-TC; 85651-TC; 85730-TC; 86140; 87040-TC; 93005; 96365; 96375; 99291; G0378; J0696; J1100; J1650; J2405; J8540; Q0144